=== PATIENT | female | born 1985 | race Caucasian/White ===

== ENCOUNTER 2016-09-24 05:41 | Inpatient (IN) | payer BC ==
[~2016-09-24] VITALS: Ht 167.6 cm; Wt 63.2 kg
[2016-09-24] VITALS (17 sets, daily range): BP systolic 97–122; BP diastolic 58–82; PULSE 74–112; TEMP 97.8–98.3
[2016-09-24 07:00] LABS: BASO % 0.5 % (0.0-2.0); EOS # 0.1 (0.0-0.7); EOS % 1.4 % (0-4.0); GRAN % 67.8 % (42.2-75.2); LYMPH # 1.5 (1.2-3.4); MEAN CELL VOLUME 99 fl (80.0-100.0); MEAN CORPUSCULAR HGB CONC 34 g/dl (33.0-37.0); MONO # 0.6 (0.1-0.6); MONO % 8.3 % (1.7-9.3); PLATELET COUNT 79 K/mm3 (130-400); RED BLOOD COUNT 3.32 M/mm3 (4.10-5.30); REDCELL DISTRIBUTION WIDTH-CV 13.5 % (11.5-14.5); WHITE BLOOD COUNT 7.3 K/mm3 (4.8-10.8)
[2016-09-24 07:10] LABS: HEMATOCRIT 32.7 % (37.0-47.0); MEAN CORPUSCULAR HEMOGLOBIN 33 pg (27.0-31.0)
[2016-09-25 00:35] VITALS: BP 98/60; PULSE 77; TEMP 98.3
[2016-09-25 07:00] VITALS: BP 99/62; PULSE 78; TEMP 98.8
[2016-09-25 16:40] VITALS: BP 110/72; PULSE 88; TEMP 98.2
[2016-09-26 08:03] VITALS: BP 99/60; PULSE 78; TEMP 98
[2016-09-26 15:13] VITALS: BP 101/62; PULSE 82; TEMP 98.4
[2016-09-26 22:00] VITALS: BP 105/63; PULSE 75; TEMP 98.7
[2016-09-27 08:12] VITALS: BP 103/69; PULSE 87; TEMP 97.6
[2016-09-27] MEDS ORDERED: PERCOCET 325 MG1 TA2 PO (08:53)
[2016-09-27] MEDS ORDERED: IBU800 M1 PO (08:53)
== END 2016-09-27 13:26 | disposition home or self-care (01) | DRG 765 ==
LOC: OB 05:41 → LDR 07:37 → OB 09-27 13:26
PROVIDERS: Obstetrics & Gynecology
PROC: 10D00Z1 Extraction of Products of Conception, Low, Open Approach (ICD-10-PCS; principal; 2016-09-24)
DX: O36.0130 Maternal care for anti-D [Rh] antibodies, third trimester, not applicable or unspecified (principal); O99.113 Other diseases of the blood and blood-forming organs and certain disorders involving the immune mechanism complicating pregnancy, third trimester; D69.6 Thrombocytopenia, unspecified; Z3A.39 39 weeks gestation of pregnancy; Z37.0 Single live birth; Z87.59 Personal history of other complications of pregnancy, childbirth and the puerperium
CPT/HCPCS: J0690; J1885; J2175; J2270; J2370; J2405; J2590; J2790; J7120

== ENCOUNTER → 2023-01-10 | Outpatient (CLI) | payer OTHER ==
[~2023-01-10] MED LIST: IBU800 M1 PO; PERCOCET 325 MG1 TA2 PO
== END ==
LOC: COL.RAD 10:30
DX: I31.39 Other pericardial effusion (noninflammatory) (principal); R76.8 Other specified abnormal immunological findings in serum

== ENCOUNTER → 2024-04-02 | Outpatient (CLI) | payer OTHER | LOC: MC.RAD 10:54 | DX: Z12.31 Encounter for screening mammogram for malignant neoplasm of breast (principal) ==